=== PATIENT | female | born 1965 | race African-American/Black ===

== ENCOUNTER 2017-04-09 09:57 | Outpatient (CLI) | payer OTHER | END 2017-04-09 10:03 | disposition home or self-care (01) | LOC: LAB 09:57 | DX: J09.X2 Influenza due to identified novel influenza A virus with other respiratory manifestations (principal) ==

== ENCOUNTER → 2017-04-09 | Outpatient (CLI) | payer OTHER ==
[~2017-04-09] VITALS: Ht 152.4 cm; Wt 74.8 kg
[~2017-04-09] MED LIST: CATAFLAM50 MG PO; DECADRON P4 MG/ML-1M IH; FLEXERIL10 MG PO; GILTUSS TR TAB1 EACH PO; NAPROXEN500 MG PO; TORADOL60 MG IM; TUSSI PRES-B L120 M1 PO; ZITHROMAX TRI-500 MG PO; ZYRTEC10 MG PO
== END | disposition home or self-care (01) ==
LOC: PPHC 07:40
DX: J06.9 Acute upper respiratory infection, unspecified (principal)

== ENCOUNTER 2017-12-14 09:02 | Outpatient (CLI) | payer OTHER | END 2017-12-14 09:18 | disposition home or self-care (01) | LOC: LAB 09:02 | DX: M79.641 Pain in right hand (principal); Z00.01 Encounter for general adult medical examination with abnormal findings ==

== ENCOUNTER 2017-12-21 13:40 | Outpatient (CLI) | payer OTHER | END 2017-12-21 13:48 | disposition home or self-care (01) | LOC: LAB 13:40 | DX: N39.0 Urinary tract infection, site not specified (principal) ==

== ENCOUNTER 2017-12-27 09:35 | Outpatient (CLI) | payer OTHER | END 2017-12-27 09:46 | disposition home or self-care (01) | LOC: MAMO-SONO 09:35 | DX: Z12.31 Encounter for screening mammogram for malignant neoplasm of breast (principal) ==

== ENCOUNTER 2018-01-11 14:17 | Outpatient (CLI) | payer OTHER | END 2018-01-11 14:20 | disposition home or self-care (01) | LOC: SONOGRAMA 14:17 | DX: N60.11 Diffuse cystic mastopathy of right breast (principal); N60.12 Diffuse cystic mastopathy of left breast ==

== ENCOUNTER 2018-01-29 09:43 | Outpatient (CLI) | payer OTHER | END 2018-01-29 10:07 | disposition home or self-care (01) | LOC: LAB 09:43 | DX: D72.818 Other decreased white blood cell count (principal); M32.8 Other forms of systemic lupus erythematosus; D80.8 Other immunodeficiencies with predominantly antibody defects; B27.89 Other infectious mononucleosis with other complication ==

== ENCOUNTER 2018-04-24 14:13 | Outpatient (CLI) | payer OTHER | END 2018-04-24 14:18 | disposition home or self-care (01) | LOC: LAB 14:13 | DX: D70.8 Other neutropenia (principal) ==

== ENCOUNTER 2018-07-09 06:59 | Outpatient (CLI) | payer OTHER | END 2018-07-09 07:07 | disposition home or self-care (01) | LOC: RAD 06:59 | DX: M79.672 Pain in left foot (principal); M77.32 Calcaneal spur, left foot ==

== ENCOUNTER 2018-08-14 11:22 | Outpatient (CLI) | payer OTHER | END 2018-08-14 11:29 | disposition home or self-care (01) | LOC: LAB 11:22 | DX: D70.8 Other neutropenia (principal) ==

== ENCOUNTER 2018-09-10 09:04 | Emergency (ER) | payer OTHER ==
[~2018-09-10] VITALS: Ht 157.5 cm; Wt 73.5 kg
== END 2018-09-10 13:46 | disposition home or self-care (01) ==
LOC: ER 09:04
DX: N76.4 Abscess of vulva (principal); N75.8 Other diseases of Bartholin's gland

== ENCOUNTER 2018-10-02 06:56 | Emergency (ER) | payer OTHER ==
[~2018-10-02] VITALS: Ht 157.5 cm; Wt 74.4 kg
== END 2018-10-02 09:49 | disposition home or self-care (01) ==
LOC: ER 06:56
DX: J31.2 Chronic pharyngitis (principal)

== ENCOUNTER 2018-10-04 07:13 | Outpatient (CLI) | payer OTHER | END 2018-10-04 07:18 | disposition home or self-care (01) | LOC: LAB 07:13 | DX: R59.9 Enlarged lymph nodes, unspecified (principal) ==

== ENCOUNTER → 2019-02-12 09:13 | Outpatient (CLI) | payer OTHER | END | disposition home or self-care (01) | LOC: LAB 09:13 | DX: J11.1 Influenza due to unidentified influenza virus with other respiratory manifestations (principal) ==

== ENCOUNTER 2019-02-25 13:25 | Outpatient (CLI) | payer OTHER | END 2019-02-25 13:29 | disposition home or self-care (01) | LOC: LAB 13:25 | DX: D70.8 Other neutropenia (principal) ==

== ENCOUNTER 2019-05-25 06:26 | Emergency (ER) | payer OTHER ==
[~2019-05-25] VITALS: Ht 157.5 cm; Wt 78.9 kg
[2019-05-25] MEDS ORDERED: BACTRIM DS TAB1 EACH PO (07:27)
== END 2019-05-25 08:44 | disposition home or self-care (01) ==
LOC: ER 06:26
DX: L02.31 Cutaneous abscess of buttock (principal); B96.89 Other specified bacterial agents as the cause of diseases classified elsewhere; B96.1 Klebsiella pneumoniae [K. pneumoniae] as the cause of diseases classified elsewhere; B95.61 Methicillin susceptible Staphylococcus aureus infection as the cause of diseases classified elsewhere

== ENCOUNTER → 2019-06-23 13:04 | Outpatient (CLI) | payer OTHER ==
[~2019-06-23 13:04] MED LIST changes: +BACTRIM DS TAB1 EACH PO
== END | disposition home or self-care (01) ==
LOC: LAB 13:04
DX: D70.8 Other neutropenia (principal); B27.00 Gammaherpesviral mononucleosis without complication

== ENCOUNTER 2019-06-23 13:19 | Outpatient (CLI) | payer OTHER | END 2019-06-23 13:31 | disposition home or self-care (01) | LOC: MAMO-SONO 13:19 | DX: Z12.31 Encounter for screening mammogram for malignant neoplasm of breast (principal); N64.4 Mastodynia ==

== ENCOUNTER 2019-12-02 09:00 | Outpatient (CLI) | payer OTHER | END 2019-12-02 15:00 | disposition home or self-care (01) | LOC: PPH VACUNA 09:00 | DX: Z23 Encounter for immunization (principal) ==

== ENCOUNTER 2019-12-08 06:41 | Outpatient (CLI) | payer OTHER | END 2019-12-08 06:52 | disposition home or self-care (01) | LOC: LAB 06:41 | PROVIDERS: ATTEND Emergency Medicine | DX: Z20.828 Contact with and (suspected) exposure to other viral communicable diseases (principal); R53.83 Other fatigue ==

== ENCOUNTER 2020-01-13 14:08 | Outpatient (CLI) | payer OTHER | END 2020-01-13 14:11 | disposition home or self-care (01) | LOC: SONOGRAMA 14:08 → MAMO-SONO 14:15 | PROVIDERS: ATTEND General Practice | DX: N84.0 Polyp of corpus uteri (principal); R10.2 Pelvic and perineal pain ==

== ENCOUNTER 2020-03-02 09:28 | Outpatient (CLI) | payer OTHER | END 2020-03-02 09:30 | disposition home or self-care (01) | LOC: PPH VACUNA 09:28 | DX: Z23 Encounter for immunization (principal) ==

== ENCOUNTER 2020-08-07 12:38 | Emergency (ER) | payer OTHER ==
[~2020-08-07] VITALS: Ht 157.5 cm; Wt 74.8 kg
== END 2020-08-07 14:09 | disposition home or self-care (01) ==
LOC: ER 12:38
DX: M54.5 Low back pain (principal)

== ENCOUNTER 2020-12-13 08:00 | Outpatient (CLI) | payer OTHER | END 2020-12-13 08:30 | disposition home or self-care (01) | LOC: PPH VACUNA 08:00 | PROVIDERS: ATTEND Emergency Medicine Pediatric Emergency Medicine | DX: Z23 Encounter for immunization (principal) ==

== ENCOUNTER 2021-03-15 11:48 | Emergency (ER) | payer OTHER ==
[~2021-03-15] VITALS: Ht 157.5 cm; Wt 74.8 kg
[2021-03-15] MEDS ORDERED: ZITHROMAX TRI-500 MG PO (13:54)
[2021-03-15] MEDS ORDERED: KETO10TA2 PO (13:54)
[2021-03-15] MEDS ORDERED: ZANAFLEX4 M1 PO (13:54)
== END 2021-03-15 14:16 | disposition home or self-care (01) ==
LOC: ER 11:48
DX: B34.9 Viral infection, unspecified (principal); Z20.822 Contact with and (suspected) exposure to COVID-19; M25.50 Pain in unspecified joint

== ENCOUNTER 2021-04-30 08:49 | Emergency (ER) | payer OTHER ==
[~2021-04-30] VITALS: Ht 157.5 cm; Wt 74.8 kg
[~2021-04-30 08:49] MED LIST changes: +KETO10TA2 PO; +ZANAFLEX4 M1 PO
== END 2021-04-30 11:38 | disposition home or self-care (01) ==
LOC: ER 08:49
DX: M54.2 Cervicalgia (principal)

== ENCOUNTER 2021-05-30 08:59 | Emergency (ER) | payer OTHER ==
[~2021-05-30] VITALS: Ht 157.5 cm; Wt 59.9 kg
== END 2021-05-30 11:42 | disposition home or self-care (01) ==
LOC: ER 08:59
DX: N75.1 Abscess of Bartholin's gland (principal); B95.61 Methicillin susceptible Staphylococcus aureus infection as the cause of diseases classified elsewhere; B96.89 Other specified bacterial agents as the cause of diseases classified elsewhere

== ENCOUNTER 2021-11-16 06:32 | Outpatient (CLI) | payer OTHER | END 2021-11-16 06:33 | disposition home or self-care (01) | LOC: LAB 06:32 | PROVIDERS: ATTEND General Practice | DX: E78.5 Hyperlipidemia, unspecified (principal); E55.9 Vitamin D deficiency, unspecified; N39.0 Urinary tract infection, site not specified; R42 Dizziness and giddiness; R51.9 Headache, unspecified; Z00.00 Encounter for general adult medical examination without abnormal findings ==

== ENCOUNTER 2021-11-16 09:38 | Outpatient (CLI) | payer OTHER | END 2021-11-16 09:43 | disposition home or self-care (01) | LOC: PPH VACUNA 09:38 | PROVIDERS: ATTEND Emergency Medicine Pediatric Emergency Medicine | DX: Z23 Encounter for immunization (principal) ==

== ENCOUNTER 2021-11-29 08:39 | Outpatient (CLI) | payer OTHER | END 2021-11-29 08:45 | disposition home or self-care (01) | LOC: MAMO-SONO 08:39 | PROVIDERS: ATTEND General Practice | DX: N64.4 Mastodynia (principal); R10.2 Pelvic and perineal pain ==